=== PATIENT | female | born 1945 | race Caucasian/White ===

== ENCOUNTER 2024-05-15 17:40 | Emergency (ER) | payer OTHER ==
[~2024-05-15] VITALS: Ht 162.6 cm; Wt 52.6 kg
[2024-05-15 18:02] VITALS: TEMP 98
[2024-05-15 20:17] VITALS: BP 110/65; O2SAT 98
== END 2024-05-15 20:17 | disposition home or self-care (01) ==
LOC: ER 17:48
DX: G89.29 Other chronic pain (principal); R07.9 Chest pain, unspecified; M54.9 Dorsalgia, unspecified; F03.90 Unspecified dementia, unspecified severity, without behavioral disturbance, psychotic disturbance, mood disturbance, and anxiety; W18.39XA Other fall on same level, initial encounter; Y93.89 Activity, other specified; Y92.89 Other specified places as the place of occurrence of the external cause; Y99.8 Other external cause status
CPT/HCPCS: 72131-TC